=== PATIENT | male | born 1980 | race Caucasian/White ===

== ENCOUNTER 2023-11-02 10:32 | Emergency (ER) | payer SELFPAY ==
[2023-11-02 10:57] VITALS: BMI 25.1
[2023-11-02 11:55] LABS: BASO % 0.9 % (0-2.0); EOS % 1.3 % (0-4.5); HEMATOCRIT 42.8 % (35.4-49); HEMOGLOBIN 13.8 GM/dL (11.7-16.9); LYMPH % 21.3 % (8-40); MCH 27.4 pg (25.7-33.7); MCHC 32.2 g/dl (32.0-35.9); MEAN CELL VOLUME 85.2 fl (80-96); MEAN PLT VOLUME 8.4 fl (7.5-11.1); MONO % 8.7 % (3.8-10.2); NEUT % 67.8 % (42.8-82.8); PLATELET COUNT 255 10^3/uL (134-434); RBC 5.02 M/mm3 (4.00-5.60); RDW 19.2 % (11.9-15.9); WHITE BLOOD COUNT 9.8 K/mm3 (4.0-10.0)
[2023-11-02 12:01] LABS: INR 1.1 (0.83-1.09); PROTHROMBIN TIME (PATIENT) 12.8 SEC (9.7-13.0)
[2023-11-02 12:04] LABS: ACTIVATED PTT 32.7 SECONDS (25.2-36.5)
[2023-11-02 12:23] LABS: POTASSIUM 3.7 mmol/L (3.5-5.1)
[2023-11-02 12:25] LABS: CALCIUM 9.1 mg/dL (8.5-10.1)
[2023-11-02 12:26] LABS: ALBUMIN 3.7 g/dl (3.4-5.0); BLOOD UREA NITROGEN 18.3 mg/dL (7-18)
[2023-11-02 12:29] LABS: CREATININE 0.9 mg/dL (0.55-1.3)
[2023-11-02 12:31] LABS: BILIRUBIN,TOTAL 0.7 mg/dL (0.2-1); TOT PROT 7.4 g/dl (6.4-8.2)
[2023-11-02 13:24] VITALS: BP 107/91; RESP 18
[2023-11-02 13:35] VITALS: PULSE 90; TEMP 98
[2023-11-02 14:09] LABS: COCAINE, UR NEGATIVE (NEGATIVE); METHADONE, UR NEGATIVE (NEGATIVE); OPIATES, URI NEGATIVE (NEGATIVE); PHENCYCLIDINE,URINE POSITIVE (NEGATIVE); URINE AMPHETAMINES NEGATIVE (NEGATIVE); URINE BARBITURATES NEGATIVE (NEGATIVE); URINE BENZODIAZEPINES NEGATIVE (NEGATIVE)
== END 2023-11-02 13:39 | disposition short-term general hospital (02) ==
LOC: JER 10:32
DX: R06.02 Shortness of breath (principal); Z20.822 Contact with and (suspected) exposure to COVID-19
CPT/HCPCS: 0241U-QW; 36415; 71045-TC-FY; 80053; 80307; 84484; 85025; 85610; 85730; 99285-25